=== PATIENT | female | born 1980 | race Caucasian/White ===

== ENCOUNTER 2018-03-15 12:39 | Emergency (ER) | payer BC, OTHER ==
[2018-03-15 14:39] VITALS: BP 112/69
--- NOTE | 2018-03-15 15:08 | UC ---
Complaint Female HPI - HPI Summary HPI Summary: 37-year-old female presents with 2 day history of some lower abdominal pressure with onset of some burning with urination today. States she has also noticed some green-colored performed stools the past 2 days. Denies fever, chills, weakness, dizziness, nausea, vomiting, diarrhea, frequency, urgency, or vaginal discharge. She reports history of microscopic hematuria which she has been evaluated for by urology with no specific cause determined. - History Of Current Complaint Chief Complaint: UCGU Stated Complaint: URINARY Time Seen by Provider: 03/15/18 14:37 Hx Obtained From: Patient Hx Last Menstrual Period: 2015 Onset/Duration: Gradual Onset, Lasting Days - 2 Severity Currently: Mild Pain Intensity: 3 Aggravating Factor(s): Nothing Alleviating Factor(s): Nothing Associated Signs And Symptoms: Negative: Fever, Back Pain, Vaginal Bleeding/ Discharge, Nausea, Vomiting(# Of Episodes =) - Allergies/Home Medications Allergies/Adverse Reactions: Allergies Allergy/AdvReac Type Severity Reaction Status Date / Time ciprofloxacin [From Cipro] Allergy GI Upset Verified 03/15/18 14:36 sulfamethoxazole Allergy GI Upset Verified 03/15/18 14:36 [From Bactrim] trimethoprim [From Bactrim] Allergy GI Upset Verified 03/15/18 14:36 Home Medications: Home Medications Norethindrone AC-Eth Estradiol [Loestrin 21 1-20 Tablet] 1 each PO DAILY [History Confirmed 03/15/18] PMH/Surg Hx/FS Hx/Imm Hx Other GI/ History: IBS, Interstitial cystitis - Surgical History Surgical History: Yes Surgery Procedure, Year, and Place: ENDOMETRIAL CYST REMOVAL - Family History Family History: Noncontributory - Social History Occupation: Employed Full-time Lives: With Family Alcohol Use: Rare Substance Use Type: None Smoking Status (MU): Never Smoked Tobacco Review of Systems Constitutional: Negative Skin: Negative Respiratory: Negative Cardiovascular: Negative Gastrointestinal: Abdominal Pain Genitourinary: Dysuria Is Patient Immunocompromised?: No All Other Systems Reviewed And Are Negative: Yes Physical Exam Triage Information Reviewed: Yes Appearance: Well-Appearing, No Pain Distress, Well-Nourished, Ill-Appearing Vital Signs: Initial Vital Signs Temp 97.4 F 03/15/18 14:33 Pulse 72 03/15/18 14:33 Resp 16 03/15/18 14:33 BP 112/69 03/15/18 14:33 Pulse Ox 100 03/15/18 14:33 Vital Signs Reviewed: Yes Respiratory: Positive: Lungs clear, Normal breath sounds, No respiratory distress Cardiovascular: Positive: RRR, No Murmur, Pulses Normal, Brisk Capillary Refill Abdomen Description: Positive: No Organomegaly, Soft, Bruit. Negative: CVA Tenderness (R), CVA Tenderness (L), Distended, Guarding Bowel Sounds: Positive: Present Neurological: Positive: Alert Skin Exam: Normal Complaint Female Dx - Course Course Of Treatment: 37 year old female with history of interstitial cystitis presents with 2 day history of lower abdominal pressure and mild dysuria. Exam was unremarkable. POC UA showed 2+ RBCs which patient states she has at baseline and has been evaluated for in the past. Will send the urine for culture and initiate treatment if indicated. Warning symptoms reviewed with patient. Verbalizes understanding and agrees with POC. - Differential Dx/Diagnosis Provider Diagnoses: Lower abdominal pain Discharge - Sign-Out/Discharge Documenting (check all that apply): Patient Departure All imaging exams completed and their final reports reviewed: No Studies - Discharge Plan Condition: Stable Disposition: HOME Patient Education Materials: Acute Abdominal Pain (ED) Referrals: Zoya Fernandez MD [Primary Care Provider] - 7 Days (If no improvement.) Additional Instructions: The urine test performed in the clinic today did not show any signs of infection. We will send the urine for culture to see if any bacteria grows out and if so we will contact you and start you on an appropriate antibiotic. Push plenty of fluids to avoid dehydration. Follow-up with your primary care provider in 7 days if symptoms persist. Seek immediate medical attention in the emergency room if you develop a fever greater than 100.5 F, have worsening abdominal pain, persistent vomiting, blood in your stool or dark black tarry stools, you become weak or dizzy, or have any worsening of symptoms. - Billing Disposition and Condition Condition: STABLE Disposition: Home - Attestation Statements Provider Attestation: Per institutional requirements, I have reviewed the chart, however, I was not consulted specifically or made aware of this patient by the midlevel provider. I did not personally evaluate, interact with , or disposition this patient.
== END 2018-03-15 15:12 | disposition home or self-care (01) ==
LOC: UCCORT 12:39
DX: R10.30 Lower abdominal pain, unspecified (principal); Z88.1 Allergy status to other antibiotic agents
CPT/HCPCS: 81003; 87086; 99201; G0463

== ENCOUNTER 2019-06-01 21:43 | Emergency (ER) | payer BC ==
--- OUTSIDE RECORDS SUMMARY | 2019-06-01 21:48 | XMS REPORT | Summary of Care ---
:1980 Author Organization [facility] Address [address] [address] Care Team Providers Name Role Phone Jim Zoya Primary Care Provider Reason for Visit Reason Comments Cough x12 days, non-productive, Urgent Care in [facility], negative for flu/ strep Encounter Details Date Type Department Care Team Description 04/30/2019 Office Visit [facility] Arlen Reynoso, Cough (Primary Dx) [address] [place] [address] [address] [phone] [place] [address] [phone] Allergies Active Allergy Reactions Severity Noted Date Comments Bactrim GI Reaction 03/22/2012 Ciprofloxacin Rash 05/03/2008 documented as of this encounter (statuses as of 04/30/2019) Medications Medication Sig Dispensed Refills Start Date End Date Status Levonorgest-Eth Estrad Take by mouth. 0 Active 91-Day (JOLESSA PO) hyoscyamine (LEVSIN) Take 0.125 mg by 0 Active 0.125 MG Oral Tab mouth EVERY FOUR HOURS NEEDED. Probiotic Product Take by mouth 0 Active (ALIGN) 4 MG Oral Cap DAILY. Miconazole Nitrate Place into the 0 Active (MONISTAT 3 vagina COMBINATION PACK VA) NEEDED. azithromycin 2 tabs today 6 Tab 0 04/30/2019 05/04/2019 Active (ZITHROMAX) 250 MG then 1 daily Oral TabIndications: until gone Cough guaiFENesin-codeine Take 10 mL by 420 mL 0 04/30/2019 Active (ROBITUSSIN AC) 100-10 mouth EVERY MG/5ML Oral BEDTIME SolutionIndications: NEEDED (cough). Cough Max Daily Amount: 10 mL. documented as of this encounter (statuses as of 04/30/2019) Active Problems Problem Noted Date Seasonal allergies 09/30/2005 Asthma 09/30/2005 documented as of this encounter (statuses as of 04/30/2019) Immunizations Name Administration Dates Next Due DTAP Vaccine 09/05/1985, 02/13/1982, 1980, 1980, 1980 Hepatitis B Vaccine 01/22/1999, 12/22/1998 MMR VACCINE 12/21/1991, 08/08/1981 Tuberculin Skin Test 07/15/2006 documented as of this encounter Social History Tobacco Use Types Packs/Day Years Used Date Never Smoker Smokeless Tobacco: Never Used Alcohol Use Drinks/Week oz/Week Comments No 0 Standard drinks or equivalent 0.0 Sex Assigned at Date Recorded Not on file Job Start Date Occupation Industry Not on file Not on file Not on file Travel History Travel Start Travel End No recent travel history available. documented as of this encounter Last Filed Vital Signs Vital Sign Reading Time Taken Comments Blood Pressure 104/54 04/30/2019 11:27 AM EST Pulse 86 04/30/2019 11:27 AM EST Temperature 36.6 04/30/2019 11:27 AM EST C (97.9 F) Respiratory Rate - - Oxygen Saturation 97% 04/30/2019 11:27 AM EST Inhaled Oxygen Concentration - - Weight 52.6 kg (116 lb) 04/30/2019 11:27 AM EST Height - - Body Mass Index 22.28 01/23/2019 7:53 AM EDT documented in this encounter Patient Instructions Patient InstructionsArlen Reynoso FNP - 04/30/2019 1:00 PM ESTRest Fluids Steam may help loosen congestion Mucinex thins mucus salt water gargle as needed for sore/scratchy throat Call if symptoms fail to resolve or worsen documented in this encounter Progress Notes Arlen Reynoso FNP - 04/30/2019 1:00 PM EST PATIENT: Luna Mc : 1980 DATE OF SERVICE: 04/30/2019 CHIEF COMPLAINT: Chief Complaint Patient presents with Cough x12 days, non-productive, Urgent Care in [facility], negative for flu/strep Subjective HISTORY OF PRESENT ILLNESS: Luna Mc is a 38-y.o. female. Cough Pertinent negatives include no chills, no ear pain, no sore throat, no shortness of breath and no wheezing. Ongoing cough x 12 days - seen in UC in [place] - Dx URI - [place] prednisone and Tessalon with some relief. Past Medical History: Diagnosis Date Dysmenorrhea GERD (gastroesophageal reflux disease) Hayfever IBS (irritable bowel syndrome) Family History Problem Relation Age of Onset Diabetes Unknown grandparent Hypertension Unknown Heart Maternal Grandmother PA 70s Current Outpatient Medications Medication Sig azithromycin (ZITHROMAX) 250 MG Oral Tab 2 tabs today then 1 daily until gone guaiFENesin-codeine (ROBITUSSIN AC) 100-10 MG/5ML Oral Solution Take 10 mL by mouth EVERY BEDTIME NEEDED (cough). Max Daily Amount: 10 mL. hyoscyamine (LEVSIN) 0.125 MG Oral Tab Take 0.125 mg by mouth EVERY FOUR HOURS NEEDED. Levonorgest-Eth Estrad 91-Day (JOLESSA PO) Take by mouth. Miconazole Nitrate (MONISTAT 3 COMBINATION PACK VA) Place into the vagina NEEDED. Probiotic Product (ALIGN) 4 MG Oral Cap Take by mouth DAILY. No current facility-administered medications for this visit. Allergies Allergen Reactions Bactrim GI Reaction Ciprofloxacin Rash Social History Socioeconomic History Marital status: Spouse name: Not on file Number of children: Not on file Years of education: Not on file Highest education level: Not on file Occupational History Not on file Social Needs Financial resource strain: Not on file Food insecurity: Worry: Not on file Inability: Not on file Transportation needs: Medical: Not on file Non-medical: Not on file Tobacco Use Smoking status: Never Smoker Smokeless tobacco: Never Used Substance and Sexual Activity Alcohol use: No Alcohol/week: 0.0 standard drinks Drug use: No Sexual activity: Not Currently Partners: Male control/protection: Pill Lifestyle Physical activity: Days per week: Not on file Minutes per session: Not on file Stress: Not on file Relationships Social connections: Talks on phone: Not on file Gets together: Not on file Attends congregational service: Not on file Active member of club or organization: Not on file Attends meetings of clubs or organizations: Not on file Relationship status: Not on file Intimate partner violence: Fear of current or ex partner: Not on file Emotionally abused: Not on file Physically abused: Not on file Forced sexual activity: Not on file Other Topics Concern Back Care Not Asked Bike Helmet Not Asked Blood Transfusions Not Asked Caffeine Concern Yes Comment: 1 SODA DAILY Exercise Not Asked Hobby Hazards Not Asked International Travel Not Asked Service Not Asked Occupational Exposure Not Asked Seat Belt Not Asked Self-Exams Not Asked Sleep Concern Not Asked Special Diet Not Asked Stress Concern Not Asked Weight Concern Not Asked 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 REVIEW OF SYSTEMS: Review of Systems Constitutional: Negative for chills, fever and malaise/fatigue. HENT: Negative for congestion, ear pain and sore throat. Respiratory: Positive for cough. Negative for sputum production, shortness of breath and wheezing. Objective PHYSICAL EXAM: VITALS: BP 104/54 | Pulse 86 | Temp 97.9 F (36.6 C) (Tympanic) | Wt 116 lb (52.6 kg) | SpO2 97% | BMI 22.28 kg/m Body mass index is 22.28 kg/ m. Physical Exam Vitals signs reviewed. Constitutional: Appearance: Normal appearance. HENT: Head: Normocephalic and atraumatic. Right Ear: Tympanic membrane normal. Left Ear: Tympanic membrane normal. Nose: No congestion or rhinorrhea. Mouth/Throat: Mouth: Mucous membranes are moist. Pharynx: Oropharynx is clear. Eyes: Extraocular Movements: Extraocular movements intact. Conjunctiva/sclera: Conjunctivae normal. Pupils: Pupils are equal, round, and reactive to light. Neck: Musculoskeletal: Normal range of motion and neck supple. Cardiovascular: Rate and Rhythm: Normal rate and regular rhythm. Pulmonary: Effort: Pulmonary effort is normal. Breath sounds: Normal breath sounds. No wheezing, rhonchi or rales. Chest: Chest wall: Tenderness present. Skin: General: Skin is warm and dry. Capillary Refill: Capillary refill takes less than 2 seconds. Coloration: Skin is not cyanotic or pale. Neurological: Mental Status: She is alert and oriented to person, place, and time. ASSESSMENT / IMPRESSION: ICD-9-CM ICD-10-CM 1. Cough 786.2 R05 azithromycin (ZITHROMAX) 250 MG Oral Tab guaiFENesin-codeine (ROBITUSSIN AC) 100-10 MG/5ML Oral Solution Plan Rest Fluids Steam may help loosen congestion Mucinex thins mucus salt water gargle as needed for sore/scratchy throat Call if symptoms fail to resolve or worsen Author: SCOTT Singh 04/30/2019 11:54 documented in this encounter Plan of Treatment Health Maintenance Due Date Last Done Comments PNEUMOCOCCAL 0-64 YRS (1 of 1986 1 - PPSV23) INFLUENZA VACCINE (#1) 2019 DEPRESSION SCREENING 01/24/2020 01/23/2019 PAP SMEAR 06/30/2020 06/30/2017, 10/09/2012, 07/22/2011, Additional history exists HPV IMMUNIZATION SERIES Aged Out No longer eligible based on patient's age to complete this topic MENINGOCOCCAL VACCINE IMM Aged Out No longer eligible based on patient's age to complete this topic documented as of this encounter Results Not on filedocumented in this encounter Visit Diagnoses Diagnosis Cough - Primary documented in this encounter Guarantor Name Account Type Relation to Date of Phone Billing Address Patient Maddie Mc Personal/Famil 1980 [address] (Home) [place] [phone] [place], [place] (Work) [id number] documented as of this encounter"
--- NOTE | 2019-06-01 21:58 | UC ---
Complaint Female HPI - HPI Summary HPI Summary: 39yo female with h/o endometriosis presenting with possible UTI. Notes burning with urination x4 days. Denies abd pain but notes lower abd discomfort with urination. Denies visible blood in the urine but notes a history of hematuria with a negative workup for it. Notes lower back pain but believes it is PMS symptoms since her period is due in 4 days. Denies fever and chills. Denies n/ v. Denies taking anything for symptoms. - History Of Current Complaint Stated Complaint: URINARY Hx Obtained From: Patient Hx Last Menstrual Period: 2015 - Allergies/Home Medications Allergies/Adverse Reactions: Allergies Allergy/AdvReac Type Severity Reaction Status Date / Time ciprofloxacin [From Cipro] Allergy GI Upset Verified 06/01/19 22:03 sulfamethoxazole Allergy GI Upset Verified 06/01/19 22:03 [From Bactrim] trimethoprim [From Bactrim] Allergy GI Upset Verified 06/01/19 22:03 PMH/Surg Hx/FS Hx/Imm Hx - Surgical History Surgical History: Yes Surgery Procedure, Year, and Place: ENDOMETRIAL CYST REMOVAL - Family History Known Family History: Positive: Non-Contributory Family History: Noncontributory - Social History Alcohol Use: Rare Substance Use Type: None Smoking Status (MU): Never Smoked Tobacco Review of Systems All Other Systems Reviewed And Are Negative: Yes Constitutional: Positive: Negative. Negative: Fever, Chills Respiratory: Positive: Negative Cardiovascular: Positive: Negative Gastrointestinal: Positive: Abdominal Pain - lower abd discomfort with urination. Negative: Vomiting, Diarrhea, Nausea Genitourinary: Positive: Dysuria, Vaginal/Penile Burning. Negative: Hematuria, Vaginal/Penile Itching, Vaginal/Penile Discharge Musculoskeletal: Positive: Negative, Arthralgia Neurological: Positive: Negative Physical Exam Triage Information Reviewed: Yes Appearance: Well-Appearing, No Pain Distress, Well-Nourished Vital Signs: Vital Signs (72 hours) 06/01/19 21:57 Temperature 98.4 F Pulse Rate 76 Respiratory 16 Rate Blood Pressure 114/76 (mmHg) O2 Sat by Pulse 100 Oximetry Lab Results 06/01/19 06/01/19 Range/Units 21:56 22:01 POC Urine Color Light yellow POC Urine Clarity Clear POC Urine pH 7.0 (5-9) POC Ur Specif Bascom 1.010 (1.010-1.030) POC Urine Protein Negative (Negative) POC Ur Glucose (UA) Trace (Negative) POC Urine Ketones Negative (Negative) POC Urine Blood 1+ A (Negative) POC Urine Nitrite Negative (Negative) POC Urine Bilirubin Negative (Negative) POC Urine Urobilinogen 0.2 (Negative) POC U Leukocyte Esteras Trace (Negative) POC Ur Test Negative (Negative) Vital Signs Reviewed: Yes Eyes: Positive: Conjunctiva Clear ENT: Positive: Hearing grossly normal Neck: Positive: Supple Respiratory Exam: Normal Respiratory: Positive: Lungs clear, Normal breath sounds, No respiratory distress Cardiovascular Exam: Normal Cardiovascular: Positive: RRR Abdominal Exam: Normal Abdomen Description: Positive: Nontender, Soft. Negative: CVA Tenderness (R), CVA Tenderness (L) Neurological: Positive: Alert Psychological: Positive: Age Appropriate Behavior Complaint Female Dx - Course Course Of Treatment: Patient discussed intolerance to most antibiotics, stating most cause severe stomach upset. States unable to take macrobid, bactrim, cipro, cephalosporins. I treated patient with augmentin, as she states she has had success with amoxicillin in the past. I instructed patient to take as prescribed and return or follow up with pcp if symptoms worsen or do not begin to resolve within 1-2 days. Patient voiced understanding and agreed with treatment plan. - Differential Dx/Diagnosis Provider Diagnosis: UTI (urinary tract infection) Discharge ED - Sign-Out/Discharge Documenting (check all that apply): Patient Departure All imaging exams completed and their final reports reviewed: No Studies - Discharge Plan Condition: Stable Disposition: HOME Prescriptions: Amoxicillin/Clavulanate TAB* [Augmentin TAB 500 mg*] 500 mg PO BID #9 tab Patient Education Materials: Urinary Tract Infection in Women (ED) Referrals: Zoya Fernandez MD [Primary Care Provider] - If Needed Additional Instructions: As discussed, take Augmentin for treatment of your UTI. You may also take the pyridium (Azo over the counter) as needed for symptomatic relief. You received the first dose of both here tonight at the urgent care. Increase your fluid intake. Follow up with your PCP if symptoms do not resolve. Return or go to emergency room with any new or worsening symptoms. - Billing Disposition and Condition Condition: STABLE Disposition: Home
[2019-06-01 22:03] VITALS: BP 114/76
[2019-06-01] MEDS ORDERED: Amoxicillin/Clavulanate TAB* 875 MG PO ONE (22:15)
[2019-06-01] MEDS ORDERED: Phenazopyridine TAB* 100 MG PO ONE (22:15)
--- NOTE | 2019-06-04 07:10 | UC ---
- Progress Note Progress Note: Treated with augmentin for suspected UTI. Culture is negative. Please call to advise that she can stop the use of antibiotic, and should see her PMD for evaluation if she is having persistent urine symptoms. Course/Dx - Diagnoses Provider Diagnoses: UTI (urinary tract infection) Discharge ED - Sign-Out/Discharge Documenting (check all that apply): Post-Discharge Follow Up All imaging exams completed and their final reports reviewed: No Studies - Discharge Plan Condition: Stable Disposition: HOME Prescriptions: Amoxicillin/Clavulanate TAB* [Augmentin TAB 500 mg*] 500 mg PO BID #9 tab Patient Education Materials: Urinary Tract Infection in Women (ED) Referrals: Zoya Fernandez MD [Primary Care Provider] - If Needed Additional Instructions: As discussed, take Augmentin for treatment of your UTI. You may also take the pyridium (Azo over the counter) as needed for symptomatic relief. You received the first dose of both here tonight at the urgent care. Increase your fluid intake. Follow up with your PCP if symptoms do not resolve. Return or go to emergency room with any new or worsening symptoms. - Billing Disposition and Condition Condition: STABLE Disposition: Home
== END 2019-06-01 22:21 | disposition home or self-care (01) ==
LOC: UCCORT 21:43
DX: N39.0 Urinary tract infection, site not specified (principal); Z88.2 Allergy status to sulfonamides; Z88.1 Allergy status to other antibiotic agents
CPT/HCPCS: 81003; 84702; 87086; 99212; A9270-GY; G0463